=== PATIENT | male | born 1975 | race Two or more races ===

== ENCOUNTER 2025-08-20 18:00 | Emergency (ER) | payer OTHER ==
[~2025-08-20] VITALS: Ht 167.6 cm; Wt 92.6 kg
[2025-08-20 18:40] LABS: Hematocrit 50.1 % (41.0-53.0); Hemoglobin 17.3 g/dL (13.5-17.5); Mean Corpuscular Hemoglobin 29.8 pg (28.0-32.0); Mean Corpuscular Volume 86.2 fL (80.0-100.0); Nucleated Red Blood Cells % 0.2 %
[2025-08-20 18:49] LABS: Alkaline Phosphatase 92 U/L (46-116); Anion Gap 11 (5-15); BUN/Creatinine Ratio 17.7 (10.0-20.0); Blood Urea Nitrogen 17 mg/dL (9-23); Chloride 102 mmol/L (98-107); Glucose 82 mg/dL (74-106); Potassium 3.6 mmol/L (3.5-5.1); Sodium 144 mmol/L (136-145); Total Protein 8.0 g/dL (5.7-8.2)
[2025-08-20 18:50] LABS: Bilirubin, Total 0.4 mg/dL (0.2-1.0)
[2025-08-20 18:56] LABS: Alanine Aminotransferase 46 U/L (7-40); Albumin 5.0 g/dL (3.2-4.8); Calcium 10.5 mg/dL (8.7-10.4); Carbon Dioxide 31 mmol/L (20-31)
--- NOTE | 2025-08-20 19:17 | DVH ---
EXAM: CT CT AB PEL WO CON-NO ORAL OR IV INDICATION: URINARY RETENTION TECHNIQUE: Volumetric multidetector CT images of the abdomen and pelvis were obtained without contrast. All CT scans at this facility use dose modulation, iterative reconstruction, and/or weight based dosing when appropriate to reduce radiation dose to as low as reasonably achievable. COMPARISON: None FINDINGS: [LOWER CHEST]: The partially visualized lung bases are clear without a pleural effusion. The cardiac size is normal without pericardial effusion. [LIVER]: Normal hepatic size without suspicious focal lesion. [GALLBLADDER AND BILIARY TREE]: No cholelithiasis. [SPLEEN]: Unremarkable. [PANCREAS]: Unremarkable. [ADRENAL GLANDS]: Unremarkable [KIDNEYS]: No hydronephrosis. No nephroureterolithiasis. [BLADDER]: Layering density within the posterior aspect of the bladder measuring 3.8 x 2.8 cm of indeterminate etiology correlate for blood products versus bladder mass. [REPRODUCTIVE ORGANS]: Unremarkable. [BOWEL/MESENTERY]: Stomach is distended. Normal appendix. No CT evidence of bowel obstruction. [ASCITES]: Absent [LYMPHADENOPATHY]: No pathologically enlarged lymph nodes by CT size criteria [VASCULATURE]: No aneurysmal dilatation. [ABDOMINAL WALL]: Unremarkable. [MUSCULOSKELETAL]: No acute fracture or aggressive focal osseous lesion. IMPRESSION: 1. Layering oval-shaped increased density density within the posterior aspect of the bladder measuring 3.8 x 2.8 cm of indeterminate etiology correlate for blood products versus bladder mass.
[2025-08-20 19:52] LABS: Urine Protein, UAD 1+ (Negative); Urine WBC Clumps PRESENT /hpf (None Seen)
--- NOTE | 2025-08-20 19:53 | ED.PDOC ---
General HPI Comments HPI: 50 y/o M, with PMHx of UTI presents to the ED for CC of urinary retention. Patient states, he has been experiencing symptoms of being unable to empty his bladder with associated hematuria x1day. Patient reports, urine production to be scant with various blood clots. Patient endorses having experienced similar symptoms in the past d/t UTI. Patient denies fever, chills, penile discharge, or scrotal selling. No other symptoms or modifying factors are present at this time. Patient states that he was not able to initially void urine however he was able to go to the bathroom here and void urine just fine and he feels that his symptoms have resolved as far as the urinary retention. He was given fluids to drink and will reassess his urine shortly. Initial Vitals BP: 155/106 HR: 85 RR:16 O2 Sat:95% Temp:97.6 Past Medical history: UTI Past Surgical history: Denies Any Medications: Denies Any Social History: Denies smoking, ETOH, and drug use. Allergies: NKDA HPI: Poor Historian. REVIEW OF SYSTEMS: CONSTITUTIONAL: Denies acute: fever, diaphoresis, chills, generalized weakness. HEAD: Denies acute: headache, photophobia Eyes: Denies acute: Double vision, vision loss, eye pain, eye discharge. EARS: Denies acute: tinnitus, hearing loss, ear discharge, ear pain, THROAT: Denies acute: sore throat, swelling, difficulty swallowing , pain with swallowing, change in voice. NECK: Denies acute: neck pain, neck swelling, stiff neck. HEART: Denies acute : chest pain, palpitations, LUNGS: Denies acute: SOB, wheezing, cough, hemoptysis ABDOMEN: Denies acute: abdominal pain, Nausea, Vomiting, diarrhea, melena , hematemesis, hematochezia SKIN: Denies acute: rash, redness, lesions, itchiness. EXTREMITIES: Denies acute: calf pain, numbness, tingling, weakness, denies pain in extremity. Denies acute: Low back pain. Neuro: Denies acute: focal neurological deficit, motor or sensory focal neurological deficit, tremors, seizure like activity, confusion, dizziness, change in mental status, loss of bowel or bladder function, cauda equina like symptoms. : Denies acute: dysuria, flank pain, increase in urinary frequency. PSYCH: Denies acute: hallucination, suicidal ideation, homicidal ideation. PHYSICAL EXAM: General: ----no----acute distress, awake and alert. Head: normocephalic, atraumatic. No raccoon's eyes, no an sign. Neck: supple, trachea is midline, no swelling. Throat: Normal phonation. Eyes:, no erythema, no purulent discharge, no proptosis, no icterus. Heart: regular rate, regular rhythm, no significant murmur appreciated. Lungs: no apparent respiratory distress, Able to speak in full sentences. No wheezing, no rhonchi, no crackles. No stridors Clear to auscultation bilaterally. Abdomen: non tender to palpation, non distended, soft, no guarding, no rebound, + bowel sounds. Neuro: Awake, Alert, oriented to name, self, situation, follows commands GCS=15. Speech is normal. Skin: no petechia, no purpura, no cyanosis, non-pale, not jaundice. Lower extremities: --no - Pitting edema no deformity, no focal swelling, no calf TTP. Makes eye contact. moves all four extremities. Face: no apparent facial droop. Ambulating in the ED independently. ED COURSE: DISCLAIMER: This medical document was created using an electronic medical record system with voice recognition software and computerized dictation system. Although this document has been carefully reviewed, there might still be some phonetic and typographical errors. Occasional wrong-word or "sound-alike" substitutions may have occurred due to the inherent limitations of voice recognition software. These areas are purely typographical due to imperfections of the software programs and do not reflect any compromise in the patient's medical care. Please read the chart carefully and recognize, using context, where these substitutions have occurred. Chief Complaint: Urinary Time Seen by MD: 19:45 Reviewed notes: Nurses Notes, Medications, Allergies Allergies: Coded Allergies: No Known Drug Allergy (Verified Allergy, Unknown, 08/20/25) Home Meds Active Scripts Nitrofurantoin Monohydrate Mac (Macrobid) 100 Mg Cap, 100 MG PO BID for 7 Days, #14 CAP Prov:AMANDA ABREU DO 08/20/25 Information Source: Patient Mode of Arrival: Ambulatory Prehospital treatment: None Symptoms: Hematuria History of: UTI Location: None Penile discharge: None Modifying factors: None associated signs and symptoms: Dysuria, Inability to Void Was a procedure done? Was a procedure done?: No Differential Diagnosis Kidney stone (Female): N/A Urinary Problem (Male): Bladder Obstruction, Urinary Retention, Urolithiasis, UTI Urinary Problem (Female): N/A X-Ray, Labs, Meds, VS Vital Signs Date Time Temp Pulse Resp B/P (MAP) Pulse Ox O2 Delivery O2 Flow Rate FiO2 08/20/25 23:53 71 152/111 08/20/25 23:27 98.0 66 19 161/100 (120) 95 98.0 08/20/25 22:59 76 164/108 08/20/25 18:03 97.6 85 16 155/106 95 97.6 Lab Test 08/20/25 18:20 08/20/25 18:10 Range/Units White Blood Count 9.6 4.4-10.8 10^3/uL Red Blood Count 5.82 4.5-5.90 10^6/uL Hemoglobin 17.3 13.5-17.5 g/dL Hematocrit 50.1 41.0-53.0 % Mean Corpuscular Volume 86.2 80.0-100.0 fL Mean Corpuscular Hemoglobin 29.8 28.0-32.0 pg Mean Corpuscular Hemoglobin Concent 34.6 32.0-36.0 g/dL Red Cell Distribution Width 14.0 11.8-14.3 % Platelet Count 394 140-450 10^3/uL Mean Platelet Volume 7.1 6.9-10.8 fL Neutrophils (%) (Auto) 63.6 37.0-80.0 % Lymphocytes (%) (Auto) 25.4 10.0-50.0 % Monocytes (%) (Auto) 8.9 0.0-12.0 % Eosinophils (%) (Auto) 1.5 0.0-7.0 % Basophils (%) (Auto) 0.6 0.0-2.0 % Neutrophils # (Auto) 6.1 1.6-8.6 10 ^3/uL Lymphocytes # (Auto) 2.4 0.4-5.4 10 ^3/uL Monocytes # (Auto) 0.9 0-1.3 10 ^3/uL Eosinophils # (Auto) 0.1 0-0.8 10 ^3/uL Basophils # (Auto) 0.1 0-0.2 10 ^3/uL Nucleated Red Blood Cells 0.2 % Sodium Level 144 136-145 mmol/L Potassium Level 3.6 3.5-5.1 mmol/L Chloride Level 102 98-107 mmol/L Carbon Dioxide Level 31 20-31 mmol/L Anion Gap 11 5-15 Blood Urea Nitrogen 17 9-23 mg/dL Creatinine 0.96 0.700-1.30 mg/dL Glomerular Filtration Rate Calc 96 >90 mL/min BUN/Creatinine Ratio 17.7 10.0-20.0 Serum Glucose 82 74-106 mg/dL Calcium Level 10.5 H 8.7-10.4 mg/dL Total Bilirubin 0.4 0.2-1.0 mg/dL Aspartate Amino Transferase (AST) 28 13-40 U/L Alanine Aminotransferase (ALT) 46 H 7-40 U/L Alkaline Phosphatase 92 46-116 U/L Total Protein 8.0 5.7-8.2 g/dL Albumin 5.0 H 3.2-4.8 g/dL Urine Color Red H Yellow Urine Clarity Ex.turbid Clear Urine pH 6.0 5.0-9.0 Urine Specific Norman 1.016 1.001-1.035 Urine Protein 1+ H Negative Urine Ketones Negative Negative Urine Blood 3+ H Negative /uL Urine Nitrite Negative Negative Urine Bilirubin Negative Negative Urine Urobilinogen Normal Negative mg/dL Urine Leukocyte Esterase 1+ Negative /uL Urine RBC 9877 0 - 3 /hpf Urine WBC Clumps Present None Seen /hpf Urine Microscopic WBC 726 H 0-3 /HPF Urine Squamous Epithelial Cells None seen <5 /hpf Urine Bacteria None seen None Seen /hpf Urine Glucose Normal Normal mg/dL Current Medications Medications (Trade) Dose Ordered Sig/Jacey Route Start Time Stop Time Status Last Admin Ceftriaxone Sodium 50 ml @ 100 mls/hr ONCE ONCE IV 08/20/25 20:00 08/20/25 20:29 DC 08/20/25 22:16 Labetalol HCl (Labetalol HCl) 5 mg ONCE ONCE IV 08/20/25 22:59 08/20/25 23:47 DC 08/20/25 22:59 [place] [id number] [facility] [address] Ph: [phone] DIAGNOSTIC IMAGING Diagnostic Imaging Report : [id number] Signed PATIENT: GRADY AUGUST ACCT: [id number] UNIT: [id number] : 1975 LOC: ER ROOM / BED: / AGE / SEX: 50 / M ADM STATUS: REG ER SERVICE 15 ORDERING PHYSICIAN: AMANDA ABREU DO PROCEDURE(s): ABPL - CT AB PEL WO CON-NO ORAL OR IV REASON: URINARY RETENTION ORDER NUMBER(s): [id number], ACCESSION NUMBER(s): [id number] EXAM: CT CT AB PEL WO CON-NO ORAL OR IV INDICATION: URINARY RETENTION TECHNIQUE: Volumetric multidetector CT images of the abdomen and pelvis were obtained without contrast. All CT scans at this facility use dose modulation, iterative reconstruction, and/or weight based dosing when appropriate to reduce radiation dose to as low as reasonably achievable. COMPARISON: None FINDINGS: [LOWER CHEST]: The partially visualized lung bases are clear without a pleural effusion. The cardiac size is normal without pericardial effusion. [LIVER]: Normal hepatic size without suspicious focal lesion. [GALLBLADDER AND BILIARY TREE]: No cholelithiasis. [SPLEEN]: Unremarkable. [PANCREAS]: Unremarkable. [ADRENAL GLANDS]: Unremarkable [KIDNEYS]: No hydronephrosis. No nephroureterolithiasis. [BLADDER]: Layering density within the posterior aspect of the bladder measuring 3.8 x 2.8 cm of indeterminate etiology correlate for blood products versus bladder mass. [REPRODUCTIVE ORGANS]: Unremarkable. [BOWEL/MESENTERY]: Stomach is distended. Normal appendix. No CT evidence of bowel obstruction. [ASCITES]: Absent [LYMPHADENOPATHY]: No pathologically enlarged lymph nodes by CT size criteria [VASCULATURE]: No aneurysmal dilatation. [ABDOMINAL WALL]: Unremarkable. [MUSCULOSKELETAL]: No acute fracture or aggressive focal osseous lesion. IMPRESSION: 1. Layering oval-shaped increased density density within the posterior aspect of the bladder measuring 3.8 x 2.8 cm of indeterminate etiology correlate for blood products versus bladder mass. ATED BY: ELMER LOMBARDO MD DICTATED DATE/TIME: 08/20/251912 SIGNED BY: ELMER LOMBARDO MD SIGNED DATE/TIME: 08/20/251912 CC: Time of 1ST Reevaluation: 20:15 Reevaluation 1ST: Unchanged Patient Education/Counseling: Diagnosis, Treatment Family Education/Counseling: Diagnosis, Treatment SEPSIS Sepsis Screen Date sepsis recognized/suspect: Aug 20, 2025 Time Sepsis recognized/suspect: 1802 Recent Procedure: No On Antibiotic Therapy: No Respiratory Rate >20: No Heart Rate >90: No Temp<36 C (96.8 F) or >38.3 C: No SBP <90 or MAP <65 mmHG: No New Acute Mental Status Change: No Is the patient on CPAP, BIPAP,: No Physician Orders Tool Straightener (08/20/25 ) Ct Ab Pel Wo Con-No Oral Or Iv (08/20/25 18:16) Vital Signs Date Time Temp Pulse Resp B/P (MAP) Pulse Ox O2 Delivery O2 Flow Rate FiO2 08/20/25 23:53 71 152/111 08/20/25 23:27 98.0 66 19 161/100 (120) 95 98.0 08/20/25 22:59 76 164/108 08/20/25 18:03 97.6 85 16 155/106 95 97.6 Laboratory Tests Test 08/20/25 18:20 White Blood Count 9.6 10^3/uL (4.4-10.8) Medications Medications Dose Ordered Sig/Jacey Route Start Time Stop Time Status Last Admin Dose Admin Ceftriaxone Sodium 50 ml @ 100 mls/hr ONCE ONCE IV 08/20/25 20:00 08/20/25 20:29 DC 08/20/25 22:16 Labetalol HCl 5 mg ONCE ONCE IV 08/20/25 22:59 08/20/25 23:47 DC 08/20/25 22:59 Departure 1 Departure Time of Disposition: 21:08 Impression: Primary Impression: Hematuria Additional Impressions: UTI (urinary tract infection) Hypertension Disposition: LEFT AGAINST MEDICAL ADVICE Condition: Guarded Additional Instructions: You are leaving against medical advice. Please return to the emergency department if you change your mind. Additional instructions: Please read all instructions provided in this packet carefully. You MUST follow-up with your primary care/family doctor in 1 to 2 days. If you are unable to see your primary care/family doctor, please return to our emergency room for re-assessment and re-evaluation in 1 to 2 days. Return to the emergency room here in our facility or to the nearest ER [facility] if your symptoms change or worsen. CONSULTATIONS: you MUST Follow-up for consultation as soon as possible with: . urology AND CARDIOLOGY in 1-2 days. Please call for appointment You MUST call the consultants office yourself to make an appointment. You may need to arrange that through your insurance and/or your primary/family doctor. If you are unable to see the gift consultant in 1 to 2 days, you must return to our emergency room (or any other ER of your choice) for re-assessment and re- evaluation. Adequate fluid hydration. MONITORING BLOOD PRESSURE AT HOME AT LEAST 3 TIMES A DAY. Although you have been discharged from the Emergency Department, this does not mean that you have a "clean bill of health". No definitive diagnosis for your symptoms has been made today. It is possible that you are in the process of developing a serious illness. This is why you must return to the ED without fail if any new or worsening symptoms develop. You need to follow up with the Urology to rule out any possible cancer. Monitoring blood pressure at home. Below is a copy of your radiological report for follow up: [place] [address] Ph: [phone] DIAGNOSTIC IMAGING Diagnostic Imaging Report : [id number] Signed PATIENT: GRADY AUGUST ACCT: [id number] UNIT: [id number] : 1975 LOC: ER ROOM / BED: / AGE / SEX: 50 / M ADM STATUS: REG ER SERVICE 181 ORDERING PHYSICIAN: AMANDA BAREU DO PROCEDURE(s): ABPL - CT AB PEL WO CON-NO ORAL OR IV REASON: URINARY RETENTION ORDER NUMBER(s): [id number], ACCESSION NUMBER(s): [id number] EXAM: CT CT AB PEL WO CON-NO ORAL OR IV INDICATION: URINARY RETENTION TECHNIQUE: Volumetric multidetector CT images of the abdomen and pelvis were obtained without contrast. All CT scans at this facility use dose modulation, iterative reconstruction, and/or weight based dosing when appropriate to reduce radiation dose to as low as reasonably achievable. COMPARISON: None FINDINGS: [LOWER CHEST]: The partially visualized lung bases are clear without a pleural effusion. The cardiac size is normal without pericardial effusion. [LIVER]: Normal hepatic size without suspicious focal lesion. [GALLBLADDER AND BILIARY TREE]: No cholelithiasis. [SPLEEN]: Unremarkable. [PANCREAS]: Unremarkable. [ADRENAL GLANDS]: Unremarkable [KIDNEYS]: No hydronephrosis. No nephroureterolithiasis. [BLADDER]: Layering density within the posterior aspect of the bladder measuring 3.8 x 2.8 cm of indeterminate etiology correlate for blood products versus bladder mass. [REPRODUCTIVE ORGANS]: Unremarkable. [BOWEL/MESENTERY]: Stomach is distended. Normal appendix. No CT evidence of bowel obstruction. [ASCITES]: Absent [LYMPHADENOPATHY]: No pathologically enlarged lymph nodes by CT size criteria [VASCULATURE]: No aneurysmal dilatation. [ABDOMINAL WALL]: Unremarkable. [MUSCULOSKELETAL]: No acute fracture or aggressive focal osseous lesion. IMPRESSION: 1. Layering oval-shaped increased density density within the posterior aspect of the bladder measuring 3.8 x 2.8 cm of indeterminate etiology correlate for blood products versus bladder mass. ATED BY: ELMER LOMBARDO MD DICTATED DATE/TIME: 08/20/251912 SIGNED BY: ELMER LOMBARDO MD SIGNED DATE/TIME: 08/20/251912 CC: e-Prescriptions Nitrofurantoin Monohydrate Mac (Macrobid) 100 Mg Cap 100 MG PO BID for 7 Days, #14 CAP Prov: AMANDA ABREU DO 08/20/25 Discharged With: Self Critical Care Note Critical Care Time?: No I personally scribed for AMANDA ABREU DO ([email or web address]) on 08/20/25 at 19:53. E lectronically submitted by Queta Kang ([email or web address]). I personally scribed for AMANDA ABREU DO ([email or web address]) on 08/20/25 at 20:14. Elec tronically submitted by Queta Kang ([email or web address]). AMANDA ABREU DO Aug 20, 2025 19:53
[2025-08-20] MEDS ORDERED: NITR-87 PO (21:21)
[2025-08-20] MEDS: LIDOCAINE 2% TOPICAL JELLY 5 ML URJT TOP ONE (22:16)
[2025-08-20] MEDS: LABETALOL HCL 20 MG/4 ML VL IV ONE ×3 (22:59→23:53)
[2025-08-20 23:27] VITALS: TEMP 98
[2025-08-20 23:46] VITALS: BP 152/100; PULSE 71; RESP 19; O2SAT 98
== END 2025-08-20 23:52 | disposition left against medical advice (07) ==
LOC: ER 18:00
DX: N39.0 Urinary tract infection, site not specified (principal); R31.9 Hematuria, unspecified; I10 Essential (primary) hypertension; Z87.440 Personal history of urinary (tract) infections; Z79.899 Other long term (current) drug therapy
CPT/HCPCS: 36415; 74176; 80053; 81001; 85025; 96365; 96375; 99285; J0696